=== PATIENT | female | born 1935 | race Caucasian/White ===

== ENCOUNTER 2022-01-13 17:57 | Emergency (ER) | payer MEDICARE, OTHER ==
[2022-01-13 18:40] LABS: CHLORIDE,CL 95 mmol/L (98-107); SODIUM,NA 132 mmol/L (136-145)
[2022-01-13 18:44] LABS: ANION GAP 11.8 mmol/L (5-15); ESTIMATED GFR 33 mL/min (>=60)
== END 2022-01-13 20:00 | disposition short-term general hospital (02) ==
LOC: VM.ED 17:57
DX: I63.9 Cerebral infarction, unspecified (principal); R29.704 NIHSS score 4
CPT/HCPCS: 36415; 70450; 80053; 83880; 84484; 85025; 85610; 93005; 99284; 99285